=== PATIENT | female | born 1955 | race Hispanic/Latino ===

== ENCOUNTER 2024-10-22 18:38 | Emergency (ER) | payer BC, OTHER ==
[~2024-10-22] VITALS: Ht 152.4 cm; Wt 55.3 kg
--- NOTE | 2024-10-22 20:08 | HMCIMG ---
CT HEAD/BRAIN W/O CONTRAST HISTORY: Status post fall COMPARISON: None TECHNIQUE: Multiple sequential axial images of the head were obtained from the base of the skull through vertex. Patient was not given contrast through intravenous route. FINDINGS: The ventricles and extraventricular CSF spaces are nondilated for patient's age. There is no midline shift, mass effect or herniation. No acute intracranial bleed is seen. Visualized portion of the paranasal sinuses are grossly within normal limits. IMPRESSION: 1. No acute intracranial bleed is seen. CT was performed with one or more following dose reduction techniques: automated exposure control, adjustment of the mA and kv according to patient's size, or use of a iterative reconstruction technique.
--- NOTE | 2024-10-22 20:55 | ERN ---
General Chief Complaint: Mechanical Fall Stated Complaint: FELL, RIGHT ANKLE PAIN, BACK PAIN Time Seen by MD: 18:40 Time Seen by Midlevel: 18:40 Source: patient History of Present Illness Initial Comments The patient is a 69-year-old female presenting to the emergency department following a mechanical ground level fall that happened at a local grocery store at approximately 4:00 p.m. today. Patient states there was water on the floor and she accidentally slipped and fell backward. Patient is unsure if she hit her head but does report a headache after the fall. She reports pain to the left ankle and lower back. Denies any focal weakness, numbness to bilateral lower extremity or tingling. Denies any urinary/bowel incontinence. Denies vision changes or any other symptoms at this time. Allergies: Coded Allergies: No Known Drug Allergies (Unverified Allergy, Unknown, 10/22/24) Past Medical History Past Medical History: No Pertinent History Past Surgical History: None ROS Dictation CONSTITUTIONAL: Negative except for HPI HEAD/FACE: Negative except for HPI EENT: Negative except for HPI RESPIRATORY: Negative except for HPI GASTROINTESTINAL/ABDOMINAL: Negative except for HPI GENITOURINARY: Negative except for HPI MUSCULOSKELETAL: Negative except for HPI INTEGUMENTARY: Negative except for HPI NEUROLOGICAL/PSYCH: Negative except for HPI HEMATOLOGIC/LYMPHATIC: Negative except for HPI All Systems Negative, Except as noted above. 13 point review of systems assessed and all negative except for above. Physical Exam Physical Exam Dictation Vital Signs reviewed General Appearance: Alert, oriented x 3, no acute distress, well developed, nourished. Head and Face: non-traumatic. Eyes: PERRL, pink conjunctivas, eyelid no trauma, anterior chamber with arcus senilis. Ears: Pinnas intact and no signs of trauma or erythema ear canals clear and no discharge TM no erythema Nose: No discharge, no bleeding. Oropharynx: Mouth normal, tongue pink, pharynx clear,no erythema, tonsils no exudates, no abscesses noted, mucous membrane moist Neck: Supple, non-tender, no thyromegaly, no masses, no JVD, no bruits Breast:Deferred Chest:No tenderness, no crepitus, no paradoxical movement, no retractions Lungs:Clear, well-ventilated, symmetric, no rales, no wheezing, no rhonchi, no stridor, good breath sounds bilaterally Heart: Regular rate, regular rhythm, no murmur, no gallops Vascular: no peripheral edema, Abdomen: Soft, positive bowel sounds, nondistended, no guarding, nontender, no rebound, no masses no hepatomegaly, no splenomegaly, no Chandra's sign, no hernias. Rectal: Deferred Genital: Deferred Neurological: Normal speech, motor function intact, sensory function intact Musculoskeletal: Neck nontender, full range of motion, back nontender, full range of motion, Extremities: nontender, full range of motion Skin: Color pink, dry, no turgor, no rash, no lacerations, no abrasions, no contusions. Lymphatic: Deferred MDM MDM: The patient is a 69-year-old female presenting to the emergency department following a mechanical ground level fall that happened at a local grocery store at approximately 4:00 p.m. today. Patient states there was water on the floor and she accidentally slipped and fell backward. Patient is unsure if she hit her head but does report a headache after the fall. She reports pain to the left ankle and lower back. Denies any focal weakness, numbness to bilateral lower extremity or tingling. Denies any urinary/bowel incontinence. Denies vision changes or any other symptoms at this time. On physical examination patient is in no acute respiratory distress. She was alert oriented x4. GCS of 15 patient is reporting a severe headache. Her gait is normal. She was able to ambulate from the a waiting room into the triage room without assistance and with a normal gait. She reports pain to her left ankle and lower back. X-ray of the left ankle and lower back were obtained which did not reveal any acute fracture or dislocation. Given that the patient fell and hit the back of her head in his unsure if she lost consciousness a CT scan of the head was ordered rule out any intracranial abnormality however her CT scan is negative. Patient was observed in the ER for over 1 hour and has remained stable and asymptomatic. The patient will be discharged home with strict return precautions. The patient agrees with this plan and all questions have been answered Differential diagnosis: Intracranial bleed, skull fracture, fracture, contusion Rationale: Tests considered and ordered secondary to shared decision making include: Previous outside records reviewed: Old ER visits. Risk of complication and/or morbidity or mortality of patient management: None Medications-Per medication reconciliation Need for hospitalization: Patient does meet criteria for hospitalization. Need for emergency major/minor surgery: No There are no social concerns with this patient. Prescription drug management Prescriptions will include symptomatic care Patient's prior external medical records from other ER visits were reviewed by me as indicated. Prior testing and results from previous visits were reviewed. Prior tests were taken into account with medical decision making and resource utilization, independent historian/historians were used to obtain complete medical history. I independently interpreted the test that were performed, results were reviewed by me and considered findings on radiology if ordered. Medical management and examination interpretation discussions were had by me wit h other qualified healthcare professionals as indicated for the patient's care. ED Course Orders Procedure Category Date Status Time Ankle Comp 3vws Lt RAD 10/22/24 Resulted 19:34 Lumbar Spine 2-3vws RAD 10/22/24 Resulted 19:34 Ct Head/Brain W/O CT 10/22/24 Resulted Contrast 19:34 Vital Signs Date Time Temp Pulse Resp B/P (MAP) Pulse Ox O2 Delivery O2 Flow Rate FiO2 10/22/24 20:56 98.1 65 16 142/68 98 Room Air* 0 10/22/24 19:18 98.1 68 16 143/68 98 Room Air* 0 21 10/22/24 18:43 98.1 69 16 145/70 96 Room Air [address] [id number] IMAGING REPORT Signed PATIENT: JAIDA ROBLEDO MR#: [id number] : 1955 SEX: F AGE: 69 LOCATION: [facility] ORDER 34 STATUS: [facility] REPORT#: [id number] SERVICE 33 REASON: fall ORDERING PHYSICIAN: AIRAM CASH PROCEDURE: LUMB 2 3VW - LUMBAR SPINE 2-3VWS LUMBAR SPINE 2-3VWS HISTORY: Status post fall COMPARISON: None FINDINGS: 2 images of lumbar spine were obtained. Disc space narrowing is seen at the L5-S1 level. There is straightening of normal lordotic curvature which may be related to muscle spasm or positioning. No loss of vertebral height is seen. No fracture or dislocation is seen. Degenerative changes are seen. IMPRESSION: 1. No fracture is seen. DICTATED BY: ED PITTMAN MD DATE: 10/22/242234 ELECTRONICALLY SIGNED BY: ED PITTMAN MD DATE: 10/22/242242 [place] [id number] IMAGING REPORT Signed PATIENT: JAIDA ROBLEDO MR#: [id number] : 1955 SEX: F AGE: 69 LOCATION: ED ORDER 34 STATUS: REG ER REPORT#: [id number] SERVICE 33 REASON: Fall/headache ORDERING PHYSICIAN: AIRAM CASH PROCEDURE: HEAD WO - CT HEAD/BRAIN W/O CONTRAST CT HEAD/BRAIN W/O CONTRAST HISTORY: Status post fall COMPARISON: None TECHNIQUE: Multiple sequential axial images of the head were obtained from the base of the skull through vertex. Patient was not given contrast through intravenous route. FINDINGS: The ventricles and extraventricular CSF spaces are nondilated for patient's age. There is no midline shift, mass effect or herniation. No acute intracranial bleed is seen. Visualized portion of the paranasal sinuses are grossly within normal limits. IMPRESSION: 1. No acute intracranial bleed is seen. CT was performed with one or more following dose reduction techniques: automated exposure control, adjustment of the mA and kv according to patient's size, or use of a iterative reconstruction technique. DICTATED BY: ED PITTMAN MD DATE: 10/22/242003 ELECTRONICALLY SIGNED BY: ED PITTMAN MD DATE: 10/22/242007 [address] [place] [id number] IMAGING REPORT Signed PATIENT: JAIDA ROBLEDO MR#: [id number] : 1955 SEX: F AGE: 69 LOCATION: ED ORDER 34 STATUS: [facility] REPORT#: [id number] SERVICE 33 REASON: fall ORDERING PHYSICIAN: AIRAM CASH PROCEDURE: [id number] - ANKLE COMP 3VWS LT ANKLE COMP 3VWS LT HISTORY: Status post fall COMPARISON: None TECHNIQUE: 3 images of left ankle were obtained. FINDINGS: There is no acute displaced fracture or dislocation. Degenerative changes are seen. IMPRESSION: 1. Findings as described above. DICTATED BY: ED PITTMAN MD DATE: 10/22/242240 ELECTRONICALLY SIGNED BY: ED PITTMAN MD DATE: 10/22/242243 DX & DISP Disposition: Discharge Departure Impression: Primary Impression: Left ankle sprain Additional Impression: Low back sprain Condition: Stable Additional Instructions: Your CT scan of the head does not show any intracranial bleed or skull fracture. Your left ankle x-ray does not show any acute fracture or dislocation. Your lower back x-ray does not show any acute fracture. Please follow up with your primary care doctor for repeat evaluation in 2-3 days. You may take Tylenol and Motrin for pain. Return to the ER if you develop any new or worsening symptoms Referrals: SELF,REFERRAL (PCP) Time of Disposition: 20:54 I have reviewed the case, and I agree with, Diagnosis and Plan I performed the substantive portion of the visit. I have reviewed and personally made and approve the management plan that is documented in the note by myself or the ELADIA. I acknowledge for responsibility for the patient's management plan. AIRAM CASH Oct 22, 2024 20:55 DEON SANCHEZ DO Oct 23, 2024 04:40
[2024-10-22 20:56] VITALS: BP 142/68; PULSE 65; RESP 16; TEMP 98.1; O2SAT 98
--- NOTE | 2024-10-22 22:43 | HMCIMG ---
LUMBAR SPINE 2-3VWS HISTORY: Status post fall COMPARISON: None FINDINGS: 2 images of lumbar spine were obtained. Disc space narrowing is seen at the L5-S1 level. There is straightening of normal lordotic curvature which may be related to muscle spasm or positioning. No loss of vertebral height is seen. No fracture or dislocation is seen. Degenerative changes are seen. IMPRESSION: 1. No fracture is seen.
--- NOTE | 2024-10-22 22:44 | HMCIMG ---
ANKLE COMP 3VWS LT HISTORY: Status post fall COMPARISON: None TECHNIQUE: 3 images of left ankle were obtained. FINDINGS: There is no acute displaced fracture or dislocation. Degenerative changes are seen. IMPRESSION: 1. Findings as described above.
== END 2024-10-22 21:04 | disposition home or self-care (01) ==
LOC: EDH 18:38
DX: S93.492A Sprain of other ligament of left ankle, initial encounter (principal); S33.5XXA Sprain of ligaments of lumbar spine, initial encounter; W01.0XXA Fall on same level from slipping, tripping and stumbling without subsequent striking against object, initial encounter; Y93.89 Activity, other specified; Y92.512 Supermarket, store or market as the place of occurrence of the external cause; Y99.8 Other external cause status
CPT/HCPCS: 70450; 72100; 73610; 99284